=== PATIENT | male | born 1955 | race African-American/Black ===

== ENCOUNTER → 2018-01-24 | Outpatient (CLI) | payer BC | END | disposition home or self-care (01) | LOC: LAB 12:05 | PROVIDERS: ATTEND Surgery | DX: R22.2 Localized swelling, mass and lump, trunk (principal); I10 Essential (primary) hypertension; E11.9 Type 2 diabetes mellitus without complications | CPT/HCPCS: 88305 ==

== ENCOUNTER 2018-07-15 08:33 | Inpatient (IN) | payer BC ==
[~2018-07-15] VITALS: Ht 190.5 cm; Wt 93.1 kg
[2018-07-15] VITALS (8 sets, daily range): BP systolic 106–170; BP diastolic 69–116
[2018-07-15] MEDS: IPRATROPIUM/ALBUTEROL 0.5-3(2.5)MG/3ML NEB INH SCH ×3 (04:20→21:20)
[~2018-07-15 08:33] MED LIST: ASCO-316 PO; ASPI-1160 PO; ATOR20TA65 PO; EMPA25TA PO; LISI-649 PO; METF-416 PO; MULT-1146 PO; OMEG-31 PO; POTA8TAB8 PO; RED600TA PO
[2018-07-15] MEDS ORDERED: CLONIDINE 0.1MG TABLET PO PRN (11:00)
[2018-07-15] MEDS ORDERED: MORPHINE SULFATE 4 MG/ML CPJ (NOT FOR IM USE) IV PRN (11:00)
[2018-07-15] MEDS ORDERED: DOCUSATE SODIUM 100MG CAPSULE PO PRN (11:00)
[2018-07-15] MEDS: LISINOPRIL 20MG TABLET PO SCH (11:00)
[2018-07-15] MEDS ORDERED: ACETAMINOPHEN 325MG TABLET PO PRN (11:00)
[2018-07-15] MEDS ORDERED: ONDANSETRON HCL 4MG/2ML INJ IV PRN (11:00)
[2018-07-15] MEDS ORDERED: LIDOCAINE HCL 1% 20ML VIAL (Pyxis) INJ ONE (11:16)
[2018-07-15] MEDS ORDERED: SODIUM BICARBONATE 4% (2.4MEQ) 5ML VIAL IV ONE (11:17)
[2018-07-15] MEDS: SODIUM CHLORIDE 0.45% 1,000 ML IV SCH (12:08)
[2018-07-15] MEDS: INSULIN LISPRO 100 UNITS/ML SUBCUT SCH ×3 (12:20→20:49)
[2018-07-15] MEDS ORDERED: DEXTROSE 50% WATER 50ML SYRINGE IV PRN (12:30)
[2018-07-15 12:54] LABS: BASOPHILS % 0.6 % (0.0-2.0); EOSINOPHILS % 0.7 % (0.0-5.0); HEMATOCRIT. 40.8 % (42.0-52.0); HEMOGLOBIN. 13.8 g/dL (14.0-18.0); LYMPHOCYTES % 9.9 % (20.0-50.0); MEAN CORPUSCULAR HEMOGLOBIN 29.7 pg (28.0-32.0); MEAN CORPUSCULAR VOLUME 88.2 fL (80.0-94.0); MEAN PLATELET VOLUME 7.7 fl (7.4-10.4); MONOCYTES % 7.5 % (2.0-8.0); NEUTROPHILS % 81.3 % (40.0-76.0); PLATELET 239 x1000/uL (130-400); RED BLOOD CELL COUNT 4.63 mill/uL (4.7-6.1); RED CELL DISTRIBUTION WIDTH 16.5 % (11.6-14.6)
[2018-07-15] MEDS ORDERED: LEVOFLOXACIN 500MG PREMIX 100 ML IV NR (13:00)
[2018-07-15 13:25] LABS: CHLORIDE 101 mEq/L (98-107); HDL CHOLESTEROL 26 mg/dL (40-59); LDL CHOLESTEROL 87 mg/dL (5-100)
[2018-07-15] MEDS: BLOOD SUGAR DIAGNOSTIC STRIP TEST SCH ×2 (16:45→20:50)
[2018-07-15] MEDS: METFORMIN HCL 500MG TABLET PO SCH (17:46)
[2018-07-15 19:10] LABS: CLARITY URINE CLEAR (CLEAR); COLOR URINE YELLOW (YELLOW); KETONES URINE 3+ (NEGATIVE); LEUKOCYTE ESTERASE URINE NEGATIVE (NEGATIVE); NITRITE URINE NEGATIVE (NEGATIVE); OCCULT BLOOD URINE NEGATIVE (NEGATIVE); PH URINE 5.5 (4.5-8.0); PROTEIN URINE TRACE (NEGATIVE); SPECIFIC GRAVITY URINE 1.029 (1.005-1.030); UROBILINOGEN URINE 0.2 E.U./dL (0.2-1.0)
[2018-07-15] MEDS: ATORVASTATIN CALCIUM 20MG TABLET PO SCH (20:50)
[2018-07-16] VITALS (12 sets, daily range): BP systolic 100–147; BP diastolic 48–113
[2018-07-16] MEDS: SODIUM CHLORIDE 0.45% 1,000 ML IV SCH ×2 (04:14→20:41)
[2018-07-16] MEDS: BLOOD SUGAR DIAGNOSTIC STRIP TEST SCH ×4 (06:15→20:41)
[2018-07-16] MEDS: INSULIN LISPRO 100 UNITS/ML SUBCUT SCH ×4 (06:30→20:51)
[2018-07-16 06:59] LABS: BASOPHILS % 0.3 % (0.0-2.0); EOSINOPHILS % 0.5 % (0.0-5.0); HEMATOCRIT. 41.4 % (42.0-52.0); HEMOGLOBIN. 14.1 g/dL (14.0-18.0); MEAN CORPUSCULAR HEMOGLOBIN 30.1 pg (28.0-32.0); MEAN CORPUSCULAR VOLUME 88.4 fL (80.0-94.0); MEAN PLATELET VOLUME 7.7 fl (7.4-10.4); MONOCYTES % 6.9 % (2.0-8.0); NEUTROPHILS % 82.3 % (40.0-76.0); PLATELET 251 x1000/uL (130-400); RED BLOOD CELL COUNT 4.69 mill/uL (4.7-6.1); RED CELL DISTRIBUTION WIDTH 16.8 % (11.6-14.6)
[2018-07-16 07:40] LABS: CHLORIDE 100 mEq/L (98-107)
[2018-07-16] MEDS: LISINOPRIL 20MG TABLET PO SCH ×2 (08:01→12:31)
[2018-07-16] MEDS: METFORMIN HCL 500MG TABLET PO SCH ×2 (08:01→17:03)
[2018-07-16] MEDS: IPRATROPIUM/ALBUTEROL 0.5-3(2.5)MG/3ML NEB INH SCH ×2 (08:16→14:47)
[2018-07-16] MEDS: LEVOFLOXACIN 500MG PREMIX 100 ML IV SCH (12:34)
[2018-07-16] MEDS: ATORVASTATIN CALCIUM 20MG TABLET PO SCH (20:41)
[2018-07-17] VITALS (12 sets, daily range): BP systolic 112–148; BP diastolic 55–97
[2018-07-17] MEDS: IPRATROPIUM/ALBUTEROL 0.5-3(2.5)MG/3ML NEB INH SCH ×4 (01:46→20:30)
[2018-07-17] MEDS: BLOOD SUGAR DIAGNOSTIC STRIP TEST SCH ×4 (05:59→20:55)
[2018-07-17] MEDS: INSULIN LISPRO 100 UNITS/ML SUBCUT SCH ×4 (06:44→20:56)
[2018-07-17] MEDS: METFORMIN HCL 500MG TABLET PO SCH ×2 (07:19→17:05)
[2018-07-17] MEDS: LISINOPRIL 20MG TABLET PO SCH (08:00)
[2018-07-17] MEDS: METOPROLOL TARTRATE 25MG TABLET PO SCH ×2 (11:00→20:56)
[2018-07-17] MEDS: LEVOFLOXACIN 500MG PREMIX 100 ML IV SCH (13:08)
[2018-07-17 13:19] LABS: BASOPHILS % 0.5 % (0.0-2.0); EOSINOPHILS % 0.7 % (0.0-5.0); HEMATOCRIT. 42.3 % (42.0-52.0); HEMOGLOBIN. 13.8 g/dL (14.0-18.0); LYMPHOCYTES % 10.5 % (20.0-50.0); MEAN CORPUSCULAR HEMOGLOBIN 29.2 pg (28.0-32.0); MEAN CORPUSCULAR VOLUME 89.7 fL (80.0-94.0); MEAN PLATELET VOLUME 7.7 fl (7.4-10.4); MONOCYTES % 6.7 % (2.0-8.0); NEUTROPHILS % 81.6 % (40.0-76.0); PLATELET 294 x1000/uL (130-400); RED BLOOD CELL COUNT 4.72 mill/uL (4.7-6.1); RED CELL DISTRIBUTION WIDTH 17.9 % (11.6-14.6)
[2018-07-17 13:24] LABS: CHLORIDE 102 mEq/L (98-107)
[2018-07-17 13:39] LABS: T4 FREE 1.27 ng/dL (0.76-1.46)
[2018-07-17] MEDS ORDERED: POTASSIUM CHLORIDE 20MEQ TABLET SR PO NR (15:15)
[2018-07-17] MEDS: ATORVASTATIN CALCIUM 20MG TABLET PO SCH (20:56)
[2018-07-18] VITALS (9 sets, daily range): BP systolic 119–162; BP diastolic 78–130
[2018-07-18] MEDS: IPRATROPIUM/ALBUTEROL 0.5-3(2.5)MG/3ML NEB INH SCH ×2 (05:20→07:24)
[2018-07-18] MEDS: BLOOD SUGAR DIAGNOSTIC STRIP TEST SCH ×2 (06:07→11:32)
[2018-07-18] MEDS: INSULIN LISPRO 100 UNITS/ML SUBCUT SCH ×2 (06:33→11:37)
[2018-07-18] MEDS: METFORMIN HCL 500MG TABLET PO SCH (08:11)
[2018-07-18] MEDS: LISINOPRIL 20MG TABLET PO SCH (08:11)
[2018-07-18] MEDS: METOPROLOL TARTRATE 25MG TABLET PO SCH (08:12)
[2018-07-18 09:32] LABS: HEMATOCRIT. 38.9 % (42.0-52.0); HEMOGLOBIN. 12.9 g/dL (14.0-18.0); MEAN CORPUSCULAR HEMOGLOBIN 29.6 pg (28.0-32.0); MEAN CORPUSCULAR VOLUME 89.1 fL (80.0-94.0); RED BLOOD CELL COUNT 4.36 mill/uL (4.7-6.1)
[2018-07-18 09:33] LABS: BASOPHILS % 0.4 % (0.0-2.0); EOSINOPHILS % 0.8 % (0.0-5.0); LYMPHOCYTES % 10.5 % (20.0-50.0); MEAN PLATELET VOLUME 7.8 fl (7.4-10.4); MONOCYTES % 10.6 % (2.0-8.0); NEUTROPHILS % 77.7 % (40.0-76.0); PLATELET 279 x1000/uL (130-400)
[2018-07-18 12:13] LABS: CHLORIDE 107 mEq/L (98-107)
== END 2018-07-18 13:15 | disposition home or self-care (01) | DRG 199 ==
LOC: NM 08:33 → 3WST 08:34
PROVIDERS: ADMIT Internal Medicine Nephrology; ATTEND Internal Medicine Nephrology
PROC: 0W9930Z Drainage of Right Pleural Cavity with Drainage Device, Percutaneous Approach (ICD-10-PCS; principal; 2018-07-15)
DX: J93.9 Pneumothorax, unspecified (principal); J96.00 Acute respiratory failure, unspecified whether with hypoxia or hypercapnia; J18.9 Pneumonia, unspecified organism; I47.2 Ventricular tachycardia; C34.92 Malignant neoplasm of unspecified part of left bronchus or lung; Z92.21 Personal history of antineoplastic chemotherapy; E78.5 Hyperlipidemia, unspecified; I10 Essential (primary) hypertension; R22.2 Localized swelling, mass and lump, trunk; E11.9 Type 2 diabetes mellitus without complications; Z79.84 Long term (current) use of oral hypoglycemic drugs; Z82.49 Family history of ischemic heart disease and other diseases of the circulatory system
CPT/HCPCS: 36415; 71045; 71250; 78582; 80048; 80061; 82962; 83735; 83880; 84439; 84443; 84481; 84484; 93005; 93306; 93970; 94640; 97162; 97166; 97530; 97535; A9558; J1956; J3490; J7620